=== PATIENT | male | born 1960 | race Caucasian/White ===

== ENCOUNTER 2016-05-11 15:01 | Emergency (ER) | payer OTHER ==
[~2016-05-11] VITALS: Ht 170.2 cm; Wt 127.4 kg
[~2016-05-11 15:01] MED LIST: INVEGA SUSTENNA INJ
[2016-05-11 15:08] VITALS: TEMP 36.8; Ht 170.2 cm; Wt 127.4 kg
[2016-05-11] MEDS ORDERED: SODIUM CHLORIDE 0.9% 1000ML 1,000 ML IV STA ×2 (15:27)
[2016-05-11 15:35] LABS: BASO % 0.2 %; BASO ABS # 0.01 K/uL (0-0.2); COMPLETE YES; EOS % 1.3 %; HEMATOCRIT 43.6 % (42-52); IG% 0.3 %; LYMPH % 24.1 %; LYMPH ABS # 1.54 K/uL (1.2-3.4); MEAN CELL VOLUME 87.6 fL (80-100); MEAN CORPUSCULAR HEMOGLOBIN 30.5 pg (25-34); MEAN CORPUSCULAR HGB CONC 34.9 g/dl (32-36); MEAN PLATELET VOLUME 9.4 fL (7.4-10.4); MONO % 7.7 %; NEUT % 66.4 %; PLATELET COUNT 226 K/uL (130-400); RED BLOOD COUNT 4.98 M/uL (4.7-6.1); WHITE BLOOD COUNT 6.39 K/uL (4.8-10.8)
[2016-05-11 15:37] VITALS: O2SAT 95
[2016-05-11 15:51] LABS: ALT/SGPT 62 U/L (12-78); BLOOD UREA NITROGEN 10 mg/dl (7-18); BUN/CREATININE RATIO 10.4 (10-20); CALCIUM 9.2 mg/dl (8.5-10.1); CARBON DIOXIDE 27 mmol/L (21-32); CHLORIDE 103 mmol/L (98-107); GLUCOSE 215 mg/dl (70-99); POTASSIUM 3.8 mmol/L (3.5-5.1); SODIUM 140 mmol/L (136-145)
--- NOTE | 2016-05-11 15:52 | EMERGENCY ROOM VISIT NOTE ---
History Report prepared by Arabella: Skyler Fulton Under the Supervision of: Dr. Raji Fierro M.D. First contact with patient: 15:24 Chief Complaint: DIZZY Stated Complaint: DIZZY,VERY TIRED,LIGHT HEADED,POSS PASSING OUT Nursing Triage Summary: Patient reports dizziness, lightheadeness and weakness for months. Patient states "it's getting worse." History of Present Illness The patient is a 55 year old male who presents to the Emergency Room with complaints of worsening dizziness beginning shortly prior to arrival. He describes the dizziness as feeling "light headed". He states that he has been eating normally, though hasn't felt that hungry lately. The patient notes that his throat is dry, though he does not feel thirsty. He notes that he has a history of pre-diabetes. He also complains of nausea. He denies any shortness of breath, cough, urinary symptoms, or fevers. The patient notes that he has a history of schizoaffective disorder. He notes that he has felt somewhat weaker than normal for the past six months. Source of History: patient Onset: shortly prior to arrival Quality: other ("lightheadedness") Timing: worsening Associated Symptoms: + nausea, No SOB, No cough, No fevers, No urinary symptoms Review of Systems See HPI for pertinent positives & negatives. A total of 10 systems reviewed and were otherwise negative. Past Medical & Surgical Medical Problems: (1) Autism (2) Dyslexia (3) History of - hypertension (4) Psychiatric disorder (5) Schizoaffective disorder Family History Heart disease Hypertension Social History Smoking Status: Never Smoker Alcohol Use: none Drug Use: none Marital Status: single Housing Status: lives alone Occupation Status: disabled Current/Historical Medications Scheduled Paliperidone Palmitate (Invega Sustenna), 234 MG IM Q4WK Allergies Coded Allergies: Penicillins (Verified Allergy, Severe, ANAPHYLAXIS, 05/11/16) Dust (Unverified Allergy, Intermediate, UNKNOWN, PER SKIN TEST @ [facility] 05/11/16) Grass (Unverified Allergy, Intermediate, UNKNOWN, PER SKIN TEST @ [facility]., 05/11/16) Amoxicillin (Verified Allergy, Unknown, ., 05/11/16) Tetanus Toxoid (Verified Allergy, Unknown, `, 05/11/16) Milk (Verified Adverse Reaction, Intermediate, emesis, 05/11/16) Uncoded Allergies: TREE (Allergy, Intermediate, UNKNOWN, PER SKIN TEST @ [facility] 02/14) WEEDS (Allergy, Intermediate, UNKNOWN, PER SKIN TEST @ [facility]., ) Physical Exam Vital Signs Date Time Temp Pulse Resp B/P Pulse Ox O2 Delivery O2 Flow Rate FiO2 05/11/16 17:47 86 18 139/87 98 05/11/16 16:10 79 05/11/16 15:37 95 Room Air 05/11/16 15:35 79 152/87 95 153/100 98 144/89 05/11/16 15:08 36.8 99 18 150/96 94 Room Air Physical Exam GENERAL: Patient is in no acute distress. HEENT: No acute trauma, normocephalic atraumatic, mucous membranes dry, no nasal congestion, no scleral icterus. NECK: No stridor, no adenopathy, no meningismus, trachea is midline. LUNGS: Clear to auscultation bilaterally, no wheeze, no rhonchi, breath sounds equal. HEART: Without murmurs gallops or rubs, regular rate and rhythm. ABDOMEN: Soft, nontender, bowel sounds positive, no hernias, no peritonitis. EXTREMITIES: No cyanosis or edema, full range of motion of all the joints without pain or difficulty, no signs for acute trauma. NEUROLOGIC: Oriented x 3, no acute motor or sensory deficits, no focal weakness. No cerebellar dysfunction or pronator drift. No speech slur or facial droop. SKIN: No rash, no jaundice, no diaphoresis. Medical Decision & Procedures ER Provider Diagnostic Interpretation: Orthostatic vital signs were slightly positive consistent with dehydration. Laboratory Results 05/11/16 15:25 Red Blood Count 4.98, Mean Corpuscular Volume 87.6, Mean Corpuscular Hemoglobin 30.5, Mean Corpuscular Hemoglobin Concent 34.9, Mean Platelet Volume 9.4, Neutrophils (%) (Auto) 66.4, Lymphocytes (%) (Auto) 24.1, Monocytes (%) (Auto) 7.7, Eosinophils (%) (Auto) 1.3, Basophils (%) (Auto) 0.2, Neutrophils # (Auto) 4.25, Lymphocytes # (Auto) 1.54, Monocytes # (Auto) 0.49, Eosinophils # (Auto) 0.08, Basophils # (Auto) 0.01 05/11/16 15:25 Test 05/11/16 15:25 05/11/16 16:50 White Blood Count 6.39 K/uL (4.8-10.8) Red Blood Count 4.98 M/uL (4.7-6.1) Hemoglobin 15.2 g/dL (14.0-18.0) Hematocrit 43.6 % (42-52) Mean Corpuscular Volume 87.6 fL (80-100) Mean Corpuscular Hemoglobin 30.5 pg (25-34) Mean Corpuscular Hemoglobin Concent 34.9 g/dl (32-36) Platelet Count 226 K/uL (130-400) Mean Platelet Volume 9.4 fL (7.4-10.4) Neutrophils (%) (Auto) 66.4 % Lymphocytes (%) (Auto) 24.1 % Monocytes (%) (Auto) 7.7 % Eosinophils (%) (Auto) 1.3 % Basophils (%) (Auto) 0.2 % Neutrophils # (Auto) 4.25 K/uL (1.4-6.5) Lymphocytes # (Auto) 1.54 K/uL (1.2-3.4) Monocytes # (Auto) 0.49 K/uL (0.11-0.59) Eosinophils # (Auto) 0.08 K/uL (0-0.5) Basophils # (Auto) 0.01 K/uL (0-0.2) RDW Standard Deviation 40.2 fL (36.4-46.3) RDW Coefficient of Variation 12.6 % (11.5-14.5) Immature Granulocyte % (Auto) 0.3 % Immature Granulocyte # (Auto) 0.02 K/uL (0.00-0.02) Anion Gap 10.0 mmol/L (3-11) Est Creatinine Clear Calc Drug Dose 104.5 ml/min Estimated GFR () 96.4 Estimated GFR (Non- 83.2 BUN/Creatinine Ratio 10.4 (10-20) Calcium Level 9.2 mg/dl (8.5-10.1) Total Bilirubin 0.7 mg/dl (0.2-1) Aspartate Amino Transf (AST/SGOT) 23 U/L (15-37) Alanine Aminotransferase (ALT/SGPT) 62 U/L (12-78) Alkaline Phosphatase 137 U/L (45-117) Troponin I < 0.015 ng/ml (0-0.045) Total Protein 7.4 gm/dl (6.4-8.2) Albumin 3.6 gm/dl (3.4-5.0) Globulin 3.8 gm/dl (2.5-4.0) Albumin/Globulin Ratio 0.9 (0.9-2) Thyroid Stimulating Hormone (TSH) 1.660 uIu/ml (0.300-4.500) Urine Color YELLOW Urine Appearance CLEAR (CLEAR) Urine pH 6.0 (4.5-7.5) Urine Specific Coral 1.020 (1.000-1.030) Urine Protein NEG (NEG) Urine Glucose (UA) NEG (NEG) Urine Ketones NEG (NEG) Urine Occult Blood NEG (NEG) Urine Nitrite NEG (NEG) Urine Bilirubin NEG (NEG) Urine Urobilinogen NEG (NEG) Urine Leukocyte Esterase NEG (NEG) Laboratory results reviewed by me. Medications Administered Medications (Trade) Dose Ordered Sig/Fallon Route Start Time Stop Time Status Last Admin Dose Admin Sodium Chloride 1,000 ml @ 999 mls/hr Q1H1M STAT IV 05/11/16 15:27 05/11/16 16:27 DC 05/11/16 15:38 999 MLS/HR Sodium Chloride (Nss 500ml) 500 ml @ 999 mls/hr Q31M STAT IV 05/11/16 17:03 05/11/16 17:33 DC 05/11/16 17:10 999 MLS/HR ECG Indication: other (dizziness) Rate (beats per minute): 85 Rhythm: normal sinus Findings: no acute ischemic change, no ectopy ED Course 1526: The patient was evaluated in room C6. A complete history and physical exam was performed. 1527: Ordered NSS 1000 mL @ 200 mL/hr IV, NSS 1000 mL @ 999 mL/hr IV. 1703: Ordered Sodium Chloride 500 ml @ 999 mls/hr IV. 1745: Reevaluated the patient. Discussed results and discharge instructions: he verbalized understanding and agreement. The patient is ready for discharge. Medical Decision The patient is a 55 year old male who presents to the ED with complaints of dizziness. Differential diagnoses considered include dehydration, electrolyte imbalance, anemia, infection, UTI, medication reaction, vertigo, as well as other etiologies were considered. There is no leukocytosis or concerning anemia. No significant electrolyte abnormality, kidney failure or hepatitis. The patient appears to be in a euthyroid state. EKG shows a normal sinus rhythm, no acute ischemia. Cardiac enzyme testing times one is not consistent with acute cardiac injury. Orthostatic vital signs were positive. Urinalysis does not show infection or hematuria. On exam, there were no focal neurologic deficits to suggest stroke. I think the patient is dehydrated, this has caused his dizziness and lightheadedness. He received IV saline, he feels improved. He is being discharged home. He was instructed to stay better hydrated, he will follow with his doctor as an outpatient and return here if worsening. Impression Primary Impression: Lightheadedness Additional Impression: Dehydration Scribe Attestation The scribe's documentation has been prepared under my direction and personally reviewed by me in its entirety. I confirm that the note above accurately reflects all work, treatment, procedures, and medical decision making performed by me. Departure Information Dispostion Home / Self-Care Referrals Fadi Harding D.O. (PCP) Forms HOME CARE DOCUMENTATION FORM, IMPORTANT VISIT INFORMATION Patient Instructions My [facility] Additional Instructions stay better hydrated rest all other care as before see your carlos md this week for a recheck all lab testing today was ok return if worsening Problem Qualifiers
[2016-05-11] MEDS ORDERED: PALI234I IM (15:58)
[2016-05-11 16:02] LABS: ALB/GLOB RATIO 0.9 (0.9-2); ALKALINE PHOSPHATASE 137 U/L (45-117); AST/SGOT 23 U/L (15-37)
[2016-05-11] MEDS ORDERED: SODIUM CHLORIDE 0.9% 500ML 500 ML IV STA (17:03)
[2016-05-11 17:30] LABS: MANUAL MICROSCOPIC REQUIRED? NO; URINE APPEARANCE CLEAR (CLEAR); URINE BILIRUBIN NEG (NEG); URINE COLOR YELLOW; URINE NITRITE NEG (NEG); UROBILINOGEN NEG (NEG)
[2016-05-11 17:31] LABS: REVIEW REQ? NO
[2016-05-11 17:32] LABS: ZZUR CULT IF INDIC CLEAN CATCH NO
[2016-05-11 17:47] VITALS: BP 139/87; PULSE 86; O2SAT 98
== END 2016-05-11 17:48 | disposition home or self-care (01) ==
LOC: C.EDB 15:02 → C.EDC 17:48
DX: R42 Dizziness and giddiness (principal); E86.0 Dehydration; I10 Essential (primary) hypertension; F20.9 Schizophrenia, unspecified; F84.0 Autistic disorder; Z88.0 Allergy status to penicillin; Z88.1 Allergy status to other antibiotic agents; Z88.8 Allergy status to other drugs, medicaments and biological substances; Z91.011 Allergy to milk products; Z91.09 Other allergy status, other than to drugs and biological substances; Z82.49 Family history of ischemic heart disease and other diseases of the circulatory system

== ENCOUNTER 2016-11-02 23:06 | Emergency (ER) | payer OTHER ==
[~2016-11-02] VITALS: Ht 170.2 cm; Wt 128.0 kg
[~2016-11-02 23:06] MED LIST changes: -INVEGA SUSTENNA INJ; +PALI234I IM
[2016-11-02 23:10] VITALS: BP 143/103; PULSE 88; TEMP 36.8; O2SAT 94; Ht 170.2 cm; Wt 128.0 kg
--- NOTE | 2016-11-03 06:38 | EMERGENCY ROOM VISIT NOTE ---
History First contact with patient: 23:07 Chief Complaint: LACERATION/CUT (SUT/DERMABOND) Stated Complaint: LACERATION Nursing Triage Summary: pt to room b4b via ems with the complaint of having a sliver of glass stuck in left index finger from a broken dish History of Present Illness The patient is a 55 year old male who presents to the Emergency Room with complaints of foreign body of his left second finger. The patient states that he was making dinner when a glass broke. The patient was cleaning up the broken glass, and believes that he may have a piece of glass now stuck in his left second finger. The patient believes he is up-to-date on his tetanus. He does not have additional complaint. He rates his discomfort a 4/10. The bleeding is well-controlled. Review of Systems More than 10 systems were reviewed and otherwise negative with the exception of history of present illness. Past Medical/Surgical History Medical Problems: (1) Autism (2) Dyslexia (3) History of - hypertension (4) Psychiatric disorder (5) Schizoaffective disorder Family History Heart disease Hypertension Social History Smoking Status: Never Smoker Alcohol Use: none Drug Use: none Marital Status: single Housing Status: lives alone Occupation Status: disabled Current/Historical Medications Scheduled Paliperidone Palmitate (Invega Sustenna), 234 MG IM Q4WK Physical Exam Vital Signs Date Time Temp Pulse Resp B/P (MAP) Pulse Ox O2 Delivery O2 Flow Rate FiO2 11/02/16 23:10 36.8 88 18 143/103 94 Room Air Pain Rating (0-10): 0 Physical Exam VITALS: Vitals are noted on the nurse's note and reviewed by myself. Vital signs stable. GENERAL: Well-developed, well-nourished, white male, who is in no acute distress and resting comfortably. Patient is cooperative with the examination. HEART: Regular rate and rhythm without murmurs gallops or rubs. LUNGS: Clear to auscultation bilaterally without wheezes, rales or rhonchi. No retractions or accessory muscle use. SKIN: The skin was with a very small glasslike foreign body along the distal end of the left second digit. There is a very small amount of bleeding which is well-controlled. Medical Decision & Procedures ED Course Physical exam and history were performed. Nursing notes, EMR, and Medication List were personally reviewed. Patient appears to have a glass foreign body of his left second finger. On examination this was easily retrieved utilizing forceps. The underlying wound was examined and is less than 2 mm in size. The patient wound was cleansed and dressed. The foreign body was removed and fall and the patient appears well for discharge home. He is to follow with his primary care physician with any ongoing or persistent symptoms. The chart was completed utilizing [employer] Speech Voice Recognition Software. Grammatical errors, random word insertions, pronoun errors, and incomplete sentences are an occasional consequence of this system due to software limitations, ambient noise, and hardware issues. Any formal questions or concerns about the content, text, or information contained within the body of this dictation should be directly addressed to the provider for clarification. . Medical Decision Differential diagnosis includes, but is not limited to: Laceration, abrasion, foreign body, and others Medication Reconcilliation Current Medication List: was personally reviewed by me Blood Pressure Screening Blood pressure disposition: Elevated BP felt to be situational Impression Primary Impression: Foreign body of finger Departure Information Dispostion Home / Self-Care Condition GOOD Forms HOME CARE DOCUMENTATION FORM, IMPORTANT VISIT INFORMATION Patient Instructions My [facility] Additional Instructions You were seen and evaluated today on an emergency basis only. This is not a substitute for, or an effort to provide, complete comprehensive medical care. It is not possible to recognize and treat all injuries or illnesses in a single emergency department visit. For this reason it is recommended that you followup with your primary care physician with any ongoing or persistent symptoms. Apply a Band-Aid and antibiotic ointment for the next 2-3 days then leave open to the air. You are welcome to return to the emergency department anytime with new, worsening, or concerning symptoms.
== END 2016-11-02 23:22 | disposition home or self-care (01) ==
LOC: EDBD 23:06 → C.EDB 23:07
DX: S60.451A Superficial foreign body of left index finger, initial encounter (principal); W25.XXXA Contact with sharp glass, initial encounter; W45.8XXA Other foreign body or object entering through skin, initial encounter; F84.0 Autistic disorder; I10 Essential (primary) hypertension; R48.0 Dyslexia and alexia; F25.9 Schizoaffective disorder, unspecified; Z82.49 Family history of ischemic heart disease and other diseases of the circulatory system; Z79.899 Other long term (current) drug therapy

== ENCOUNTER 2016-11-05 15:44 | Emergency (ER) | payer OTHER ==
[~2016-11-05] VITALS: Ht 170.2 cm; Wt 129.2 kg
[2016-11-05 15:48] VITALS: TEMP 37; Ht 170.2 cm; Wt 129.2 kg
[2016-11-05] MEDS ORDERED: SODIUM CHLORIDE 0.9% 1000ML 1,000 ML IV STA (16:02)
[2016-11-05] MEDS ORDERED: SODIUM CHLORIDE 0.9% 1000ML 250 ML IV STA (16:02)
[2016-11-05 16:10] LABS: BASO % 0.1 %; BASO ABS # 0.01 K/uL (0-0.2); COMPLETE YES; HEMATOCRIT 41.9 % (42-52); IG% 0.3 %; LYMPH % 26.8 %; LYMPH ABS # 1.89 K/uL (1.2-3.4); MEAN CELL VOLUME 88.8 fL (80-100); MEAN CORPUSCULAR HEMOGLOBIN 30.5 pg (25-34); MEAN CORPUSCULAR HGB CONC 34.4 g/dl (32-36); MEAN PLATELET VOLUME 9.4 fL (7.4-10.4); MONO % 8.4 %; NEUT % 63.4 %; PLATELET COUNT 215 K/uL (130-400); RED BLOOD COUNT 4.72 M/uL (4.7-6.1); WHITE BLOOD COUNT 7.06 K/uL (4.8-10.8)
--- NOTE | 2016-11-05 16:23 | EMERGENCY ROOM VISIT NOTE ---
History Report prepared by Arabella: Nacho Mcintyre Under the Supervision of: Dr. Eduardo Mckeon M.D. First contact with patient: 15:56 Chief Complaint: RESPIRATORY PROBLEMS Stated Complaint: SOB Nursing Triage Summary: pt arrives via EMS from [facility].pt reports I have been sob intermittently while riding the bus since March 2016. pt reports today I had a good sleep and woke up and loved up my cats then [facility] and I felt a little more sob than normal for me . pt denies cp or NV or cough pt also reports I get a monthly inj of invega and I am told I am schizophrenic and bipolar and I read the good book every day and learn it. I feel very good in my phyllis right now no desire to hurt myself or anyone else History of Present Illness The patient is a 55 year old male with schizo-affective disorder who presents to the Emergency Room via EMS with complaints of worsening respiratory problems that started more than 6 months ago. He says that every day, his shortness of breath has been getting "worse and worse", and today around 5 hours ago, he states that his shortness of breath worsened even more. The patient adds that for the past month, he has been trying to "breathe by yawning", which has made it hard for him to have any deep breaths. He says that it does not hurt to breathe, but he feels a heavy weight on his chest. He says that starting this morning, his throat swelled up. The patient adds that he has had a bit of a cough for the past few months. He notes that currently, he has a bit of a headache. He denies any chest pain, fevers, abdominal pain, rashes, leg swelling or leg pain. The patient says that he feels good, and denies any suicidal or homicidal ideations. He says that he "loves life". The patient states that he has no history of heart or lung trouble. He has a history of hypertension. The patient says that he gets a monthly injection of Invega. Source of History: patient Onset: More than 6 months ago Position: other (global - respiratory problems) Timing: worsening Associated Symptoms: + headache, + cough, + SOB, No fevers, No chest pain, No abdominal pain, No rash Note: Associated symptoms: Throat swelled up today. Heavy weight on chest. Hurts to breathe. Denies leg swelling or leg pain. Review of Systems See HPI for pertinent positives & negatives. A total of 10 systems reviewed and were otherwise negative. Past Medical & Surgical Medical Problems: (1) Autism (2) Dyslexia (3) History of - hypertension (4) Psychiatric disorder (5) Schizoaffective disorder Old medical records were reviewed. Nurse's notes were reviewed and I agree with. Family History Heart disease Hypertension Social History Smoking Status: Never Smoker Alcohol Use: none Drug Use: none Marital Status: single Housing Status: lives alone Occupation Status: disabled Current/Historical Medications Scheduled Paliperidone Palmitate (Invega Sustenna), 234 MG IM Q4WK Allergies Coded Allergies: Penicillins (Verified Allergy, Severe, ANAPHYLAXIS, 11/05/16) Dust (Unverified Allergy, Intermediate, UNKNOWN, PER SKIN TEST @ [facility] 11/05/16) Grass (Unverified Allergy, Intermediate, UNKNOWN, PER SKIN TEST @ [facility]., 11/05/16) Amoxicillin (Verified Allergy, Unknown, ., 11/05/16) Tetanus Toxoid (Verified Allergy, Unknown, `, 11/05/16) Milk (Verified Adverse Reaction, Intermediate, emesis, 11/05/16) Uncoded Allergies: TREE (Allergy, Intermediate, UNKNOWN, PER SKIN TEST @ [facility] 02/14) WEEDS (Allergy, Intermediate, UNKNOWN, PER SKIN TEST @ [facility] ) Physical Exam Vital Signs Date Time Temp Pulse Resp B/P (MAP) Pulse Ox O2 Delivery O2 Flow Rate FiO2 11/05/16 17:22 83 18 153/105 97 Room Air 11/05/16 16:38 82 18 169/107 96 Room Air 11/05/16 15:48 37.0 85 18 152/104 97 Room Air Physical Exam General: Well developed well nourished non ill-appearing middle aged male in no acute distress. Speaking and swallowing without difficulty, no drooling. HEENT: Normal cephalic atraumatic. Pupils are equal round and reactive to light. Extraocular movements are intact. Oropharynx is pink with moist mucous membranes. No swelling of the mouth lips or tongue. Neck: Supple with a midline trachea. No meningeal signs or stiffness, no JVD or bruits. No Stridor. Chest: Clear to auscultation bilaterally. No wheezes or rhonchi. No increased work of breathing. Heart: regular rate and rhythm. Abdomen: Soft nontender, nondistended without rebound guarding or rigidity. Extremities: No cyanosis clubbing or edema. No calf tenderness or assymetry Spine/Back. Non tender to palpation. No CVA tenderness Skin: Good turgor without rashes. Neurologic exam: Cranial nerves two through 12 are intact. Motor and sensation are intact and symmetrical throughout. Psych: Denies suicidal or homicidal ideations, normal affect. Medical Decision & Procedures ER Provider Diagnostic Interpretation: X-ray results as stated below per interpretation by me and the radiologist: CHEST ONE VIEW PORTABLE HISTORY: 55 years-old Male CHEST PAIN COMPARISON: 04/13/2015 TECHNIQUE: Portable upright AP view of the chest FINDINGS: Cardiac silhouette is again enlarged without overt pulmonary edema. No pneumothorax or pleural effusion. No focal airspace consolidation. Bones are grossly intact. IMPRESSION: Cardiomegaly without overt pulmonary edema. The above report was generated using voice recognition software. It may contain grammatical, syntax or spelling errors. Electronically signed by: Chapo Bradley M.D. 11/05/2016 4:40 PM Dictated Date/Time: 11/05/2016 4:39 PM Laboratory Results 11/05/16 15:55 Red Blood Count 4.72, Mean Corpuscular Volume 88.8, Mean Corpuscular Hemoglobin 30.5, Mean Corpuscular Hemoglobin Concent 34.4, Mean Platelet Volume 9.4, Neutrophils (%) (Auto) 63.4, Lymphocytes (%) (Auto) 26.8, Monocytes (%) (Auto) 8.4, Eosinophils (%) (Auto) 1.0, Basophils (%) (Auto) 0.1, Neutrophils # (Auto) 4.48, Lymphocytes # (Auto) 1.89, Monocytes # (Auto) 0.59, Eosinophils # (Auto) 0.07, Basophils # (Auto) 0.01 11/05/16 15:55 Test 11/05/16 15:55 11/05/16 16:25 White Blood Count 7.06 K/uL (4.8-10.8) Red Blood Count 4.72 M/uL (4.7-6.1) Hemoglobin 14.4 g/dL (14.0-18.0) Hematocrit 41.9 % (42-52) Mean Corpuscular Volume 88.8 fL (80-100) Mean Corpuscular Hemoglobin 30.5 pg (25-34) Mean Corpuscular Hemoglobin Concent 34.4 g/dl (32-36) Platelet Count 215 K/uL (130-400) Mean Platelet Volume 9.4 fL (7.4-10.4) Neutrophils (%) (Auto) 63.4 % Lymphocytes (%) (Auto) 26.8 % Monocytes (%) (Auto) 8.4 % Eosinophils (%) (Auto) 1.0 % Basophils (%) (Auto) 0.1 % Neutrophils # (Auto) 4.48 K/uL (1.4-6.5) Lymphocytes # (Auto) 1.89 K/uL (1.2-3.4) Monocytes # (Auto) 0.59 K/uL (0.11-0.59) Eosinophils # (Auto) 0.07 K/uL (0-0.5) Basophils # (Auto) 0.01 K/uL (0-0.2) RDW Standard Deviation 40.0 fL (36.4-46.3) RDW Coefficient of Variation 12.3 % (11.5-14.5) Immature Granulocyte % (Auto) 0.3 % Immature Granulocyte # (Auto) 0.02 K/uL (0.00-0.02) Anion Gap 7.0 mmol/L (3-11) Est Creatinine Clear Calc Drug Dose 95.7 ml/min Estimated GFR () 85.9 Estimated GFR (Non- 74.1 BUN/Creatinine Ratio 9.6 (10-20) Calcium Level 8.4 mg/dl (8.5-10.1) Total Bilirubin 0.6 mg/dl (0.2-1) Direct Bilirubin 0.2 mg/dl (0-0.2) Aspartate Amino Transf (AST/SGOT) 24 U/L (15-37) Alanine Aminotransferase (ALT/SGPT) 53 U/L (12-78) Alkaline Phosphatase 156 U/L (45-117) Total Creatine Kinase 78 U/L (39-308) Creatine Kinase MB 0.6 ng/ml (0.5-3.6) Creatine Kinase MB Ratio 0.8 (0-3.0) Troponin I < 0.015 ng/ml (0-0.045) Total Protein 6.9 gm/dl (6.4-8.2) Albumin 3.3 gm/dl (3.4-5.0) Lipase 106 U/L (73-393) Thyroid Stimulating Hormone (TSH) 1.600 uIu/ml (0.300-4.500) Bedside Troponin I < 0.030 ng/ml (0-0.045) VY-Nha-I-Type Natriuretic Peptide 19 pg/ml (0-900) Laboratory studies as stated above per my review. Medications Administered Medications (Trade) Dose Ordered Sig/Fallon Route Start Time Stop Time Status Last Admin Dose Admin Sodium Chloride 250 ml @ 999 mls/hr Q16M STAT IV 11/05/16 16:02 11/05/16 16:17 DC 11/05/16 16:02 999 MLS/HR Sodium Chloride 1,000 ml @ 100 mls/hr Q10H STAT IV 11/05/16 16:02 11/05/16 17:53 DC 11/05/16 16:38 100 MLS/HR ECG Indication: SOB/dyspnea Rate (beats per minute): 78 Rhythm: normal sinus Findings: no acute ischemic change, other (nonspecific T-wave abnormality) Comparison ECG Date: compared to May 11 2016, nonspecific T wave abnormality are now present ED Course 1557: Past medical records reviewed. The patient was evaluated in room C3, and a complete history and physical examination were performed. 1602: Ordered NSS 1000 @ 100 mls/hr IV, NSS 250 ml @ 999 mls/hr IV. 1645: I talked to the psych caser shoe parts about the patient, and she will see the patient. 1708: Upon reevaluation, the patient is resting comfortably. I discussed the results and treatment plan with him. He verbalized agreement of the treatment plan. The patient was discharged home. Medical Decision Differentials include, but are not limited to; CHF, pneumonia, anxiety, allergic reaction, infection. This patient comes in as described above. He's felt short of breath for 6 months now. He looks great at present he is non-hypoxemic. He has no increased work of breathing. He has no stridor . There is no evidence of oropharyngeal or throat swelling. He is speaking and swallowing without difficulty. He has no hives or anything to suggest anaphylaxis or allergic reaction. IV access established and he was hydrated gently. EKG and chest x- ray were obtained as well as multiple blood testing. He was reassessed frequently. He have a history of schizoaffective disorder as well and I had our psychiatric caser shoe parts also evaluate him in the emergency department. He denies any suicidal or homicidal ideations. His workup here was unremarkable. EKG does not suggest acute coronary syndrome or arrhythmias cardiac enzymes are not elevated chest x-ray does not show any definite congestive heart failure pneumonia or pneumothorax. His BNP is not elevated. He has no acute electrolyte or metabolic abnormalities. He looks well and feels well. Again this been going on for 6 months. I have her psychiatric caser shoe parts also talked to him. She does not feel that he needs psychiatric help tonight and the patient agrees with this. He has no suicidal or homicidal ideations. He looks well and will be discharged home. He was encouraged to return if: worsening of symptoms, shortness of breath, any new problems or concerns. He should follow up with his doctor this week for recheck. Medication Reconcilliation Current Medication List: was personally reviewed by me Blood Pressure Screening Patient's blood pressure: Elevated blood pressure Blood pressure disposition: Referred to PCP Impression Primary Impression: SOB (shortness of breath) Scribe Attestation The scribe's documentation has been prepared under my direction and personally reviewed by me in its entirety. I confirm that the note above accurately reflects all work, treatment, procedures, and medical decision making performed by me. Departure Information Dispostion Home / Self-Care Referrals Lydia Rhodes PA-C (PCP) Forms HOME CARE DOCUMENTATION FORM, IMPORTANT VISIT INFORMATION, WORK / SCHOOL INSTRUCTIONS Patient Instructions My [facility] Additional Instructions Rest. Return if: Worsening of symptoms, chest pain, thoughts of hurting himself or others, any new problems concerns. Your blood pressure is mildly elevated and you should follow-up with your doctor this week for recheck and possible further treatment
[2016-11-05 16:24] LABS: ALT/SGPT 53 U/L (12-78); BLOOD UREA NITROGEN 11 mg/dl (7-18); BUN/CREATININE RATIO 9.6 (10-20); CALCIUM 8.4 mg/dl (8.5-10.1); CARBON DIOXIDE 29 mmol/L (21-32); CHLORIDE 105 mmol/L (98-107); GLUCOSE 164 mg/dl (70-99); POTASSIUM 3.5 mmol/L (3.5-5.1); SODIUM 141 mmol/L (136-145)
[2016-11-05 16:34] LABS: ALKALINE PHOSPHATASE 156 U/L (45-117); AST/SGOT 24 U/L (15-37); CKMB/CK RATIO 0.8 (0-3.0)
--- NOTE | 2016-11-05 16:42 | DIAGNOSTIC IMAGING REPORT ---
CHEST ONE VIEW PORTABLE HISTORY: 55 years-old Male CHEST PAIN COMPARISON: 04/13/2015 TECHNIQUE: Portable upright AP view of the chest FINDINGS: Cardiac silhouette is again enlarged without overt pulmonary edema. No pneumothorax or pleural effusion. No focal airspace consolidation. Bones are grossly intact. IMPRESSION: Cardiomegaly without overt pulmonary edema. The above report was generated using voice recognition software. It may contain grammatical, syntax or spelling errors. Electronically signed by: Chapo Bradley M.D. 11/05/2016 4:40 PM Dictated Date/Time: 11/05/2016 4:39 PM
[2016-11-05 16:44] LABS: POINT OF CARE PRO-BNP 19 pg/ml (0-900); POINT OF CARE TROPONIN I < 0.030 ng/ml (0-0.045)
[2016-11-05 17:22] VITALS: BP 153/105; PULSE 83; O2SAT 97
== END 2016-11-05 17:25 | disposition home or self-care (01) ==
LOC: EDBD 15:44 → C.EDC 15:45
DX: R06.02 Shortness of breath (principal); R05 Cough; R51 Headache; I10 Essential (primary) hypertension; F84.0 Autistic disorder; R48.0 Dyslexia and alexia; F25.9 Schizoaffective disorder, unspecified; Z82.49 Family history of ischemic heart disease and other diseases of the circulatory system; I51.7 Cardiomegaly

== ENCOUNTER 2016-11-08 16:17 | Emergency (ER) | payer OTHER ==
[~2016-11-08] VITALS: Ht 170.2 cm; Wt 127.5 kg
[2016-11-08 16:31] VITALS: TEMP 36.8; Ht 170.2 cm; Wt 127.5 kg
[2016-11-08] MEDS ORDERED: OPTIRAY 320 IV PRN (18:15)
--- NOTE | 2016-11-08 18:37 | DIAGNOSTIC IMAGING REPORT ---
CT ANGIOGRAPHY OF THE CHEST, PULMONARY EMBOLUS PROTOCOL CLINICAL HISTORY: Shortness of breath. Elevated d-dimer. COMPARISON STUDY: Chest radiograph November 05, 2016. TECHNIQUE: Following IV administration of 88 mL of Optiray-320, helical axial images of the chest were obtained utilizing the pulmonary embolus protocol. Maximal intensity projections and sagittal and coronal reformats were viewed on an independent 3D workstation. IV contrast was administered without complication. A dose lowering technique was utilized adhering to the principles of ALARA. CT DOSE: 635.10 mGy.cm FINDINGS: No pulmonary emboli are identified although this exam is moderately compromised by respiratory motion which decreases sensitivity for detection of segmental and subsegmental pulmonary emboli. The heart is moderately enlarged. There is no pericardial effusion. There is no evidence of thoracic aortic dissection. No enlarged thoracic lymph nodes are present. Central airways are patent. Mild groundglass opacities likely reflect atelectasis. There is no consolidation to suggest pneumonia. Bony thorax is unremarkable. There is probable fatty infiltration of the liver. There are numerous water attenuation hepatic lesions which are consistent with cysts. Borderline splenomegaly is unchanged. IMPRESSION: 1. No pulmonary emboli identified although evaluation of the segmental and subsegmental pulmonary arteries is compromised due to respiratory motion. 2. No acute intrathoracic findings. 3. Moderate cardiomegaly. Fatty liver. Multiple hepatic cysts. Electronically signed by: Berto Landry M.D. 11/08/2016 6:35 PM Dictated Date/Time: 11/08/2016 6:27 PM
[2016-11-08 19:26] VITALS: BP 151/106; PULSE 93; O2SAT 95
--- NOTE | 2016-11-08 19:27 | EMERGENCY ROOM VISIT NOTE ---
History First contact with patient: 17:49 Chief Complaint: SHORTNESS OF BREATH Stated Complaint: HEART EMBOLISM,SOB Nursing Triage Summary: Patient ambulatory to triage with his patient case manager. Patient has had a nagging cough, shortness of breath and low energy for several months now. His PCP ran some blood work on him, including a Ddimer, which came back elevated today. He was called and referred to the ED today for a chest CT. Patient admits to shortness of breath that worsens when moving. Patient denies any pain. History of Present Illness The patient is a 55 year old male who presents to the Emergency Room with his development officer for a chest CT to rule out pulmonary embolus. The development officer reports that she received a phone call from [employer] today, telling her that his d-dimer was elevated. The patient reports that he has had extensive outpatient and ED labs over the past 3 days when he was evaluated in the emergency department 3 days ago with his symptoms. His workup in the emergency department was normal. The patient and development officer report that he has been weak and short of breath now for several months. The patient has had no recent cough , chest pain, back pain or neck pain. He denies any recent trauma to the chest. The shortness of breath is worse with exertion. He currently denies any discomfort, fevers or chills. Review of Systems HEENT: Denies dizziness, visual problems, hearing loss, tinnitus. Denies difficulty swallowing or oral lesions. PULMONARY: Denies cough, sputum production or hemoptysis. The patient otherwise complains of shortness of breath. CARDIOVASCULAR: Denies chest pain, palpitations, dyspnea on exertion, orthopnea or peripheral edema. GASTROINTESTINAL: Denies diarrhea, constipation, nausea, vomiting, or abdominal pain. GENITOURINARY: Denies dysuria, frequency, urgency or nocturia. NEUROLOGIC: Denies history of epilepsy, CVA, TIA or chronic headaches. MUSCULOSKELETAL: Denies history of joint tenderness/swelling. SKIN: Denies rashes or lesions. PSYCHIATRIC: Denies history of depression or mental illness. ENDOCRINE: Denies history of diabetes or thyroid disorders. Past Medical/Surgical History Medical Problems: (1) Autism (2) Dyslexia (3) History of - hypertension (4) Psychiatric disorder (5) Schizoaffective disorder Family History Heart disease Hypertension Social History Smoking Status: Never Smoker Alcohol Use: none Drug Use: none Marital Status: single Housing Status: lives alone Occupation Status: disabled Current/Historical Medications Scheduled Paliperidone Palmitate (Invega Sustenna), 234 MG IM Q4WK Physical Exam Vital Signs Date Time Temp Pulse Resp B/P (MAP) Pulse Ox O2 Delivery O2 Flow Rate FiO2 11/08/16 17:56 91 19 143/106 94 Room Air 11/08/16 16:35 96 Room Air 11/08/16 16:31 36.8 89 20 169/103 94 Room Air Physical Exam CONSTITUTIONAL: Obese male, alert and oriented X 3 with positive affect. Patient does not appear in any acute respiratory distress. HEENT: Normocephalic, atraumatic. Pupils equal, round and reactive. Ears and nares are clear. No scleral icterus or conjunctival injection/pallor. NECK: Full active range of motion without discomfort. No JVD or carotid bruits. RESPIRATORY: Clear to auscultation bilaterally with no wheezing, crackles, rhonchi or stridor. CARDIOVASCULAR: Regular rate and rhythm with no murmurs, rubs or gallops. GASTROINTESTINAL: Bowel sounds present in all quadrants. Abdomen is soft and nontender to palpation. No obvious hepatosplenomegaly. No fluid wave. No ballottement. No CVA tenderness. MUSCULOSKELETAL: Full range of motion of all joints without discomfort. INTEGUMENTARY: No rash or other significant dermatologic conditions noted. HEMATOLOGIC: No ecchymosis or petechiae noted. NEUROLOGIC: No focal neurologic deficits noted. Medical Decision & Procedures ER Provider Diagnostic Interpretation: CT angiography of the chest does not show any evidence for pulmonary emboli, consolidations, pneumothorax or other acute findings. Radiologist report is as follows: CT ANGIOGRAPHY OF THE CHEST, PULMONARY EMBOLUS PROTOCOL CLINICAL HISTORY: Shortness of breath. Elevated d-dimer. COMPARISON STUDY: Chest radiograph November 05, 2016. TECHNIQUE: Following IV administration of 88 mL of Optiray-320, helical axial images of the chest were obtained utilizing the pulmonary embolus protocol. Maximal intensity projections and sagittal and coronal reformats were viewed on an independent 3D workstation. IV contrast was administered without complication. A dose lowering technique was utilized adhering to the principles of ALARA. CT DOSE: 635.10 mGy.cm FINDINGS: No pulmonary emboli are identified although this exam is moderately compromised by respiratory motion which decreases sensitivity for detection of segmental and subsegmental pulmonary emboli. The heart is moderately enlarged. There is no pericardial effusion. There is no evidence of thoracic aortic dissection. No enlarged thoracic lymph nodes are present. Central airways are patent. Mild groundglass opacities likely reflect atelectasis. There is no consolidation to suggest pneumonia. Bony thorax is unremarkable. There is probable fatty infiltration of the liver. There are numerous water attenuation hepatic lesions which are consistent with cysts. Borderline splenomegaly is unchanged. IMPRESSION: 1. No pulmonary emboli identified although evaluation of the segmental and subsegmental pulmonary arteries is compromised due to respiratory motion. 2. No acute intrathoracic findings. 3. Moderate cardiomegaly. Fatty liver. Multiple hepatic cysts. ED Course Patient history and physical exam were performed. Nurse's notes were reviewed. Vital signs were reviewed, showing a blood pressure 169/103. Respiratory rate is 20 with pulse rate of 89. O2 saturation is 94% on room air. The patient does not appear in any acute respiratory distress. I also reviewed documentation from the patient's ED visit 3 days ago that was entirely normal, including ECG, lab work and chest x-ray. It is noted that his troponin and BNP were normal. D-dimer was not ordered. With outpatient labs today, the patient did have an elevated d-dimer. He was sent here for a chest CT to rule out pulmonary emboli. For this reason, I did not order additional labs. Chest CT angiography was normal. The patient and development officer were advised of the CT findings. I did suggest close follow-up with the family doctor for further reevaluation and management, possibly referral to pulmonology and/or cardiology. The patient was instructed to rest over the weekend, and return to the emergency department for any worsening shortness of breath, developing chest pain, diaphoresis, nausea or other concerning symptoms. The patient was happy with plan of care, voiced understanding of all discharge instructions, and denied any chest pain or shortness of breath at the time of discharge. It is noted that the patient's blood pressure is still elevated, and should be addressed by his family doctor. The patient was instructed to discuss this with his PCP in follow-up. Medical Decision The patient presents to the emergency department with complaint of a several month history of shortness of breath. The patient has had an extensive workup at this point, including two ED evaluation. His prior labs are not suggestive of myocardial infarction or other infectious etiology. CT angiography today does not show any evidence for pulmonary emboli. He does have cardiomegaly, and a cardiology evaluation may be warranted. At this point, I do not feel that the patient requires hospitalist evaluation. Medication Reconcilliation Current Medication List: was personally reviewed by me Blood Pressure Screening Patient's blood pressure: Elevated blood pressure Blood pressure disposition: Referred to PCP Impression Primary Impression: Shortness of breath Additional Impression: Elevated blood pressure reading Departure Information Referrals Giorgi Mckeon III, M.D. (PCP) Patient Instructions My [facility] Problem Qualifiers
== END 2016-11-08 19:25 | disposition home or self-care (01) ==
LOC: C.EDB 16:18 → C.EDA 19:25
DX: R06.02 Shortness of breath (principal); R03.0 Elevated blood-pressure reading, without diagnosis of hypertension; F84.0 Autistic disorder; R48.0 Dyslexia and alexia; I10 Essential (primary) hypertension; F25.9 Schizoaffective disorder, unspecified; Z82.49 Family history of ischemic heart disease and other diseases of the circulatory system; Z79.899 Other long term (current) drug therapy